=== PATIENT | male | born 1945 | race Caucasian/White ===

== ENCOUNTER → 2019-02-13 10:24 | Outpatient (CLI) | payer OTHER, SELFPAY ==
[2019-02-13 10:36] VITALS: BP 117/66; PULSE 70; RESP 14; TEMP 36.3; O2SAT 98; BMI 20.8
--- NOTE | 2019-02-13 11:12 | WMO.HTC_ITS ---
Problem List (1) Hemophilia B in male Status: Chronic Subjective Date of Service:: 02/13/19 Chief Complaint: F/U for Hemophilia B. 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 Has Hep C. Still has R side d weakness diagnosed 10yrs ago, due to spinal abnormality in neck. Has not needed Factor replacement this year. Has seen a Dentist for cleaning. Health History: Past Medical History Past Medical History: Hearing problems Other Past Medical History: NEUROLOGICAL DEFICIT Family History Paternal Past Medical History: Unknown Paternal History of Cancer Colon cancer,Prostate cancer Maternal Past Medical History: Unknown Past Medical History (Last Reviewed 02/13/19 @ 10:36 by Naz Dove) Neurological deficit present (Acute) Family History (Last Reviewed 02/13/19 @ 10:36 by Naz Dove) Father Prostate cancer Colon cancer Social History Smoking Status Never smoker Allergies/Adverse Reactions: Allergy/AdvReac Type Severity Reaction Status Date / Time aspirin Allergy Severe Other Verified 02/13/19 10:36 Risk Factors Social History Smoking Status Never smoker Tobacco Risk Data: Tobacco Risk Smoking Status Never smoker Type of tobacco: Smokeless tobacco usage: Items/Day: Year started: Years used: Counseled to quit/cut down: Reason for no counseling performed: Reason for no pharmacotherapy: Tobacco use comments: Passive smoke exposure: Substance Risk Drug use: No Caffeine use [drinks/day]: 2 Alcohol use: No Type of alcohol: Drinks per day: Has patient felt the need to cut down: Has the patient been annoyed by complaints: Has the patient felt guilty about drinking: 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: Comments: Review of Systems Constitutional:: Reports: Weakness Cardiovascular:: Denies: Chest pain, Palpitations, Dyspnea on exertion, Orthopnea, PND, Shortness of breath Respiratory: Denies: Cough, Hemoptysis, Shortness of Breath, Wheezing Gastrointestinal:: Denies: Abdominal pain, Nausea, Vomiting, Diarrhea, Constipation, Hematochezia Genitourinary: Denies: Dysuria, Hematuria, 15, Flank pain Musculoskeletal:: Denies: Back pain, Myalgia, Arthralgia Skin: Denies: Rash, Skin Changes, Wounds Neurological:: Reports: Muscle weakness - R sided weakness Psychiatric: Denies: Anxiety, Depression, Homicidal Ideations, Suicidal Ideations Vital Signs Height 5 ft 9 in Weight: 63.957 kg Weight in Pounds 141.0 lbs Pulse Ox 98 Temperature 97.4 F Pulse Rate 70 Respiratory Rate 14 Blood Pressure 117/66 Blood Pressure Position Sitting - Physical Exam General: Alert, Oriented x3, No apparent distress HEENT: Atraumatic, PERRLA, EOMI, Normocephalic Oropharynx:: Dry mucosa Neck:: Supple, Trachea midline. Negative for: JVD, bilateral Cardiac:: Regular rate, Regular rhythm, Normal S1, Normal S2. Negative for: Murmur Lungs: Clear to auscultation, Excusion symmetrical. Negative for: Rhonchi, Wheezes Abdomen:: Bowel sounds x 4, Soft, Non-tender, Non-distended. Negative for: Hepatosplenomegaly Extremities:: - - + atrophic R hand nails. Neurological: Cranial nerves II-XII grossly intact, Unsteady Gait - slight limp. Skin:: Negative for: Lesions, Rash, Petechiae, Ecchymosis Psychiatric:: Appropriate affect, Euthymic Lymphatics:: Negative for: Cervical lymphadenopathy, Supraclavicular lymphadenopathy, Axillary lymphadenopathy Assessment and Plan Hemophilia B, clinically stable. H/O Hepatitis C. R sided weakness-chronic spine disease. Plan is to continue expectant management with Factor replacement as needed. RTC 1 yr. Primary Care Provider: Jonathan Kohler MD Referring Provider: Jonathan Torres MD
== END ==
PROVIDERS: Family Provider Orthopaedic Surgery; PCP Orthopaedic Surgery; Referring Provider Internal Medicine Hematology & Oncology; Visit Provider Internal Medicine Medical Oncology
DX: D67 Hereditary factor IX deficiency (principal)